=== PATIENT | female | born 1945 | race Caucasian/White ===

== ENCOUNTER 2017-03-03 14:01 | Observation (INO) | payer OTHER ==
[~2017-03-03] VITALS: Ht 157.5 cm; Wt 84.7 kg
--- NOTE | 2017-03-03 15:08 | DIAGNOSTIC IMAGING REPORT ---
PROCEDURE: XR CHEST 1 VIEW INDICATION: CHEST PAIN TECHNIQUE: Portable AP view 02:49 p.m. COMPARISON: Chest x-ray 11/05/2010 FINDINGS: Lungs are clear. Heart and mediastinum are normal. Thorax is normal. IMPRESSION: 1. Negative chest.
--- NOTE | 2017-03-03 18:09 | ED CLINICAL REPORT ---
Clinical Report - Physicians/Mid Levels [facility] [address] [place] [address] 03/03/2017 14:03 Patient: CLAUDIA KING Time Seen: 14:09. Arrived- By private vehicle. Historian- patient. HISTORY OF PRESENT ILLNESS Chief Complaint: CHEST PAIN. It is described as sharp and it is described as located in the left chest area and radiating (L arm pit). At its maximum, severity described as 10 / 10. When seen in the E.D., severity described as 1 / 10. Not worsened by movement or deep breaths or relieved by rest. This started yesterday at about 9 PM; Six or seven episodes last about 15 minutes each. Steady pain with jabs in addition. No reflux. and is still present (almost gone). It was abrupt in onset. Onset during rest. The patient has had difficulty breathing and nausea and has experienced diaphoresis. No vomiting. (Took own ASA last night). Similar symptoms previously: None. REVIEW OF SYSTEMS No fever, chills, cough, pedal edema or calf pain. No headache, sore throat, blurred vision, abdominal pain or black stools. No difficulty with urination, skin rash, enlarged lymph nodes, joint pain or bloody stools. No reflux. PAST HISTORY PCP: Dr Chelsea Mauricio [facility] SURGERY HX: Had hysterectomy. ( Left rotator cuff. left knee, Lower back L4, L5). Hosp: Tachycardia and hypertension Illness: HBP, Hypothyroid. Neuropathy. SOCIAL HISTORY Former smoker. ADDITIONAL NOTES The nursing notes have been reviewed. PHYSICAL EXAM Vital Signs: 03/03/2017 18:32 BP: 128/75. HR: 63. RR: 16. O2 saturation: 100%. Temp: 98 F. 03/03/2017 16:50 BP: 122/96. HR: 66. RR: 18. O2 saturation: 97%. 03/03/2017 14:14 BP: 177/75. HR: 61. RR: 18. O2 saturation: 100%. Temp: 98 F. Pain level now: 10/17. Appearance: Alert. No acute distress. Eyes: Pupils equal, round and reactive to light. Eyes normal inspection. ENT: Pharynx normal. Neck: Neck not supple. Normal inspection. CVS: Normal heart rate and rhythm. Heart sounds normal. Respiratory: No respiratory distress. Breath sounds normal. Chest nontender. Abdomen: Soft and nontender. Bowel sounds normal. Back: Normal external inspection. Skin: Skin warm. Normal skin color. Extremities: Extremities exhibit normal ROM. No lower extremity edema. Neuro: No alteration in mental status. No motor deficit. LABS, X-RAYS, AND EKG EKG: No acute process. No acute ischemia. Rate: 61. Normal P waves. Normal CELSO. Normal QRS complex. Normal axis. Normal ST and T waves. EKG #2: Normal. Chest X-ray: (PROCEDURE: XR CHEST 1 VIEW INDICATION: CHEST PAIN TECHNIQUE: Portable AP view 02:49 p.m. COMPARISON: Chest x-ray 11/05/2010 FINDINGS: Lungs are clear. Heart and mediastinum are normal. Thorax is normal. IMPRESSION: 1. Negative chest. Electronically Final signed by:Jony Garcia MD 03/03/2017 3:07:50 PM). Laboratory Tests: CBC w Diff: (IRMA: 03/03/2017 14:40) ( MsgRcvd 03/03/2017 14:55) Final results Test Result Flag Units (Reference) WHITE BLOOD COUNT 6.6 K/uL (4.5-11.5) RED BLOOD COUNT 4.48 M/uL (4.00-5.20) HEMOGLOBIN 12.4 gm/dL (12.0-16.0) HEMATOCRIT 37.5 % (36.0-46.0) MEAN CELL VOLUME 84 fL (80-100) MEAN CORPUSCULAR HGB 28 pg (26-34) MEAN CORPUSCULAR HGB CONC 33 g/dL (31-37) RED CELL DISTRIBUTION WIDTH 14.6 % (11.6-14.8) PLATELET COUNT 207 K/uL (150-400) NEUTROPHIL % 69.3 % (50-75) LYMPH % 22.9 L % (25-40) MONO % 7.7 % (3-14) EOSINOPHIL % 0 % (0-4) BASOPHIL % 0.1 % (0-2) [id number]: (IRMA: 03/03/2017 14:40) ( [facility] 03/03/2017 15:06) Final results Test Result Flag Units (Reference) D-DIMER QUANTITATIVE < 0.27 L ug/mLFEU (0.27-0.52) The primary value of this quantitative assay relates toits negative predictive value (i.e. exclusion) of pulmonaryembolism/deep vein thrombosis/DIC.Elevated levels of d-dimer may also occur with:, age, cancer, inflammation, liver disease,post-op, infection, hematoma, coronary disease, peripheralarteriopathy, bleeding disorders and thrombolytic treatment.Results should be correlated with other clinical andradiological data.Testing Methodology: Latex Immunoassay BNP: (IRMA: 03/03/2017 14:40) ( [facility] 03/03/2017 15:07) Final results Test Result Flag Units (Reference) B-TYPE NATRIURETIC PEPTIDE 27.7 pg/ml (5-100) CHEM 13 PANEL: (IRMA: 03/03/2017 14:40) ( [facility] 03/03/2017 15:13) Final results Test Result Flag Units (Reference) GLUCOSE 81 mg/dL (70-110) BUN 13 mg/dL (7-18) CREATININE 0.7 mg/dL (0.6-1.3) Estimated GFR >60 mL/min Estimated GFR- >60 mL/min Note: Persistent reduction over 3 months in eGFR<60 mL/min/1.73 m2 defines CKD. Patients with eGFR values>=60 mL/min/1.73 m2 may also have CKD if evidence ofpersistent proteinuria. Additional information may be foundat www.kidney.org. SODIUM 140 mmol/L (136-145) POTASSIUM 3.8 mmol/L (3.5-5.1) CHLORIDE 104 mmol/L (98-107) CARBON DIOXIDE 23 mmol/L (21-32) CALCIUM 9.1 mg/dL (8.5-10.1) TOTAL PROTEIN 7.1 g/dL (6.4-8.2) ALBUMIN 3.6 g/dL (3.3-5.0) BILIRUBIN, TOTAL 0.5 mg/dL (0.0-1.0) ALKALINE PHOSPHATASE 70 U/L (46-116) AST (SGOT) 15 U/L (15-37) ALT (SGPT) 20 U/L (12-78) MAGNESIUM 2.0 mg/dL (1.8-2.4) CPK 41 U/L (24-260) TROPONIN I <0.05 ng/mL (0.00-1.5) TROPONIN REFERENCE RANGE:<0.1 NEGATIVE0.1-1.5 INDETERMINANT>1.5 POSITIVE . PROGRESS AND PROCEDURES Course of Care: 15:09 03/03/17. re exam Labs are negative 16:22 03/03/17. Second EKG neg. Labs and CXR are negative. Page to Dr Malin. Dr Pierce agrees to admit the patient for serial enzymes and to arrange stress testing either this admit or soon after discharge. Disposition orders written. Disposition: Admitted. CLINICAL IMPRESSION Clinical picture does not suggest chest wall pain, pulmonary edema or embolism, aortic dissection or pleurisy. Clinical picture does not suggest pneumothorax. CHEST PAIN, RO ACS. (Electronically signed by Fernandez Beebe MD 03/04/2017 0:21)
--- NOTE | 2017-03-03 18:09 | ED NURSING NOTES ---
Clinical Report - Nurses [facility] [address] [place] [address] 03/03/2017 14:03 Patient: CLAUDIA KING TRIAGE Triage time 14:15. Chief Complaint: CHEST PAIN. --14:27 Sheriff Szymanski R.N. 14:14 03/03/17. BP: 177/75. HR: 61. RR: 18. O2 saturation: 100%. Temp: 98 F. Pain level now: 10/17. --14:27 Sheriff Szymanski R.N. Weight: 86.1 kg stated. Height/Length: 62 inches Per Patient. BMI: 34.8. --14:26 Sheriff Szymanski R.N. Medications Venlafaxine HCl ER Oral (Tablet Extended Release 24 Hour 37.5 mg) 1 tablet. --14:18 Sheriff Szymanski R.N. Thyroid Oral. --14:19 Sheriff Szymanski R.N. Metoprolol Tartrate Oral (Tablet 25 mg) 1 tablet. --14:20 Sheriff Szymanski R.N. Gabapentin Oral 100 mg, 3x a day. --14:20 Sheriff Szymanski R.N. Propranolol HCl Oral 120 mg, daily. --14:21 Sheriff Szymanski R.N. Allergies PCN. Phenergan. --14:21 Sheriff Szymanski R.N. History Arrived by private vehicle. Historian: patient. This started yesterday. Onset. (around 1999.). ( Chest pressure and pain started last night. On and off since then, pain level 10/17.). She has had difficulty breathing, nausea and vomiting. PAST MEDICAL HX: Immunizations: status is unknown. SURGERY HX: Had hysterectomy. ( Left rotator cuff. left knee, Lower back L4, L5). SOCIAL HX: Smoker- current status unknown. No alcohol use or drug use. NUTRITIONAL RISK ASSESSMENT: The nutritional risk assessment revealed no deficiencies. FUNCTIONAL ASSESSMENT: Functional assessment: no impairments noted. LEARNING NEEDS ASSESSMENT: The learning needs assessment revealed no barriers. SKIN INTEGRITY ASSESSMENT: Skin integrity risk assessment completed. No skin integrity risk identified. --14:27 Sheriff Szymanski R.N. PROBLEMS: Restless Legs Syndrome. Hypothyroidism. Peripheral Neuropathy. Hypertension. --14:24 Sheriff Szymanski R.N. PHYSICAL ASSESSMENT Ambulatory to room. Patient gowned. GENERAL / NEURO / PSYCH: Alert. Oriented X 4. Appears in no acute distress. HEENT: Mucous membranes are pink. RESPIRATORY: Respirations not labored. CVS: Pulses within normal limits. Capillary refill less than 2 seconds. GI / : Abdomen soft. SKIN: Skin is warm and dry. Normal skin turgor. --14:27 Sheriff Szymanski R.N. NURSING PROGRESS NOTES EKG time: (1413). EKG was performed by a tech and shown to the ED physician. ( (Per protocol)). --14:12 Chandler Whittaker, ER Tech1 Two patient identifiers checked. Call light placed in reach. Side rails up x 2. Bed placed in lowest position. Brakes of bed on. --14:28 Sheriff Szymanski R.N. 14:30 03/03/2017 Site #1 started via IV in the left forearm with an 20g angiocath, with aseptic technique; one attempt. Saline lock flushed with 10 mL saline. --14:45 Sheriff Szymanski R.N. 14:54 03/03/2017 Aspirin PO 325 mg given. Allergies verified and confirmed 5 rights. --14:54 Sheriff Szymanski R.N. 14:54 03/03/2017 NITROGLYCERIN PASTE Topical 1 inch. Applied to the right chest. Allergies verified and confirmed 5 rights. --14:54 Sheriff Szymanski R.N. 16:50 03/03/17. BP: 122/96. HR: 66. RR: 18. O2 saturation: 97%. --16:51 Ian Murry, ER Tech1 18:32 03/03/17. BP: 128/75. HR: 63. RR: 16. O2 saturation: 100%. Temp: 98 F. --18:34 Kb Hidalgo. Locked/Released at 03/06/2017 13:01 by Roxy Jeong R.N.
--- NOTE | 2017-03-03 18:09 | ED CLINICAL REPORT ---
Clinical Report - Physicians/Mid Levels [facility] [address] [place] [address] 03/03/2017 14:03 Patient: CLAUDIA KING Time Seen: 14:09. Arrived- By private vehicle. Historian- patient. HISTORY OF PRESENT ILLNESS Chief Complaint: CHEST PAIN. It is described as sharp and it is described as located in the left chest area and radiating (L arm pit). At its maximum, severity described as 10 / 10. When seen in the E.D., severity described as 1 / 10. Not worsened by movement or deep breaths or relieved by rest. This started yesterday at about 9 PM; Six or seven episodes last about 15 minutes each. Steady pain with jabs in addition. No reflux. and is still present (almost gone). It was abrupt in onset. Onset during rest. The patient has had difficulty breathing and nausea and has experienced diaphoresis. No vomiting. (Took own ASA last night). Similar symptoms previously: None. REVIEW OF SYSTEMS No fever, chills, cough, pedal edema or calf pain. No headache, sore throat, blurred vision, abdominal pain or black stools. No difficulty with urination, skin rash, enlarged lymph nodes, joint pain or bloody stools. No reflux. PAST HISTORY PCP: Dr Chelsea Mauricio [facility] SURGERY HX: Had hysterectomy. ( Left rotator cuff. left knee, Lower back L4, L5). Hosp: Tachycardia and hypertension Illness: HBP, Hypothyroid. Neuropathy. SOCIAL HISTORY Former smoker. ADDITIONAL NOTES The nursing notes have been reviewed. PHYSICAL EXAM Vital Signs: 03/03/2017 18:32 BP: 128/75. HR: 63. RR: 16. O2 saturation: 100%. Temp: 98 F. 03/03/2017 16:50 BP: 122/96. HR: 66. RR: 18. O2 saturation: 97%. 03/03/2017 14:14 BP: 177/75. HR: 61. RR: 18. O2 saturation: 100%. Temp: 98 F. Pain level now: 10/17. Appearance: Alert. No acute distress. Eyes: Pupils equal, round and reactive to light. Eyes normal inspection. ENT: Pharynx normal. Neck: Neck not supple. Normal inspection. CVS: Normal heart rate and rhythm. Heart sounds normal. Respiratory: No respiratory distress. Breath sounds normal. Chest nontender. Abdomen: Soft and nontender. Bowel sounds normal. Back: Normal external inspection. Skin: Skin warm. Normal skin color. Extremities: Extremities exhibit normal ROM. No lower extremity edema. Neuro: No alteration in mental status. No motor deficit. LABS, X-RAYS, AND EKG EKG: No acute process. No acute ischemia. Rate: 61. Normal P waves. Normal CELSO. Normal QRS complex. Normal axis. Normal ST and T waves. EKG #2: Normal. Chest X-ray: (PROCEDURE: XR CHEST 1 VIEW INDICATION: CHEST PAIN TECHNIQUE: Portable AP view 02:49 p.m. COMPARISON: Chest x-ray 11/05/2010 FINDINGS: Lungs are clear. Heart and mediastinum are normal. Thorax is normal. IMPRESSION: 1. Negative chest. Electronically Final signed by:Jony Garcia MD 03/03/2017 3:07:50 PM). Laboratory Tests: CBC w Diff: (IRMA: 03/03/2017 14:40) ( MsgRcvd 03/03/2017 14:55) Final results Test Result Flag Units (Reference) WHITE BLOOD COUNT 6.6 K/uL (4.5-11.5) RED BLOOD COUNT 4.48 M/uL (4.00-5.20) HEMOGLOBIN 12.4 gm/dL (12.0-16.0) HEMATOCRIT 37.5 % (36.0-46.0) MEAN CELL VOLUME 84 fL (80-100) MEAN CORPUSCULAR HGB 28 pg (26-34) MEAN CORPUSCULAR HGB CONC 33 g/dL (31-37) RED CELL DISTRIBUTION WIDTH 14.6 % (11.6-14.8) PLATELET COUNT 207 K/uL (150-400) NEUTROPHIL % 69.3 % (50-75) LYMPH % 22.9 L % (25-40) MONO % 7.7 % (3-14) EOSINOPHIL % 0 % (0-4) BASOPHIL % 0.1 % (0-2) [id number]: (IRMA: 03/03/2017 14:40) ( [facility] 03/03/2017 15:06) Final results Test Result Flag Units (Reference) D-DIMER QUANTITATIVE < 0.27 L ug/mLFEU (0.27-0.52) The primary value of this quantitative assay relates toits negative predictive value (i.e. exclusion) of pulmonaryembolism/deep vein thrombosis/DIC.Elevated levels of d-dimer may also occur with:, age, cancer, inflammation, liver disease,post-op, infection, hematoma, coronary disease, peripheralarteriopathy, bleeding disorders and thrombolytic treatment.Results should be correlated with other clinical andradiological data.Testing Methodology: Latex Immunoassay BNP: (IRMA: 03/03/2017 14:40) ( [facility] 03/03/2017 15:07) Final results Test Result Flag Units (Reference) B-TYPE NATRIURETIC PEPTIDE 27.7 pg/ml (5-100) CHEM 13 PANEL: (IRMA: 03/03/2017 14:40) ( [facility] 03/03/2017 15:13) Final results Test Result Flag Units (Reference) GLUCOSE 81 mg/dL (70-110) BUN 13 mg/dL (7-18) CREATININE 0.7 mg/dL (0.6-1.3) Estimated GFR >60 mL/min Estimated GFR- >60 mL/min Note: Persistent reduction over 3 months in eGFR<60 mL/min/1.73 m2 defines CKD. Patients with eGFR values>=60 mL/min/1.73 m2 may also have CKD if evidence ofpersistent proteinuria. Additional information may be foundat www.kidney.org. SODIUM 140 mmol/L (136-145) POTASSIUM 3.8 mmol/L (3.5-5.1) CHLORIDE 104 mmol/L (98-107) CARBON DIOXIDE 23 mmol/L (21-32) CALCIUM 9.1 mg/dL (8.5-10.1) TOTAL PROTEIN 7.1 g/dL (6.4-8.2) ALBUMIN 3.6 g/dL (3.3-5.0) BILIRUBIN, TOTAL 0.5 mg/dL (0.0-1.0) ALKALINE PHOSPHATASE 70 U/L (46-116) AST (SGOT) 15 U/L (15-37) ALT (SGPT) 20 U/L (12-78) MAGNESIUM 2.0 mg/dL (1.8-2.4) CPK 41 U/L (24-260) TROPONIN I <0.05 ng/mL (0.00-1.5) TROPONIN REFERENCE RANGE:<0.1 NEGATIVE0.1-1.5 INDETERMINANT>1.5 POSITIVE . PROGRESS AND PROCEDURES Course of Care: 15:09 03/03/17. re exam Labs are negative 16:22 03/03/17. Second EKG neg. Labs and CXR are negative. Page to Dr Malin. Dr Pierce agrees to admit the patient for serial enzymes and to arrange stress testing either this admit or soon after discharge. Disposition orders written. Disposition: Admitted. CLINICAL IMPRESSION Clinical picture does not suggest chest wall pain, pulmonary edema or embolism, aortic dissection or pleurisy. Clinical picture does not suggest pneumothorax. CHEST PAIN, RO ACS. (Electronically signed by Fernandez Beebe MD 03/04/2017 0:21)
--- NOTE | 2017-03-03 18:09 | ED ORDER SUMMARY ---
..... Patient: CLAUDIA KING OrderSheet [facility] VisitID: [id number] [address] [place] [address] 72y, F Registration Date/Time: 03/03/2017 ORDER SHEET Weight: 86.1 kg (stated) Allergies: PCN, Phenergan GENERAL ORDERS: Chest 1V Urgent (14:16 03/03/2017 Miguel GOLDEN) (Ack 14:23 RUPERTurca ER Tech1) (16:43 Andrew) Gas Desulfurizer (Continuous) (14:16 03/03/2017 Miguel GOLDEN) (Ack 14:23 RUPERTurca ER Tech1) (14:23 RUPERTurca ER Tech1) Cardiac Panel Stat (14:17 03/03/2017 Miguel GOLDEN) (Ack 14:23 Brayana ER Tech1) (17:02 ALawrence ER Tech1) BNP Urgent (14:17 03/03/2017 Miguel GOLDEN) (Ack 14:23 RUPERTurca ER Tech1) (17:02 ALawrence ER Tech1) D-Dimer Urgent (14:17 03/03/2017 Miguel GOLDEN) (Ack 14:23 RUPERTurca ER Tech1) (17:02 ALawrence ER Tech1) Oxygen (2 L/min) (NC) (14:17 03/03/2017 Miguel GOLDEN) (Ack 14:23 RUPERTurca ER Tech1) (14:23 IJurca ER Tech1) Pulse oximeter (14:17 03/03/2017 Miguel GOLDEN) (Ack 14:23 RUPERTurca ER Tech1) (14:23 IJurca ER Tech1) EKG - ER Stat (14:17 03/03/2017 Miguel GOLDEN) (Ack 14:23 Brayana ER Tech1) (14:23 RUPERTurca ER Tech1) EKG - ER Repeat Stat (16:06 03/03/2017 Miguel GOLDEN) (Ack 16:11 RUPERTurca ER Tech1) (16:12 Nikos) - (NEEDS RAY FORM.) (16:31 03/03/2017 Miguel GOLDEN) (16:38 IJurca ER Tech1) MEDICATION ORDERS: Aspirin PO 325 mg (NOW) (14:16 03/03/2017 Miguel GOLDEN) (14:54 Esthermbgrzegorz R.N.) NitroGLYCERIN Paste Topical 1 in. (NOW) (14:16 03/03/2017 Miguel GOLDEN) (14:54 Esthermbgrzegorz R.N.) IV FLUIDS: IV Saline Lock (14:17 03/03/2017 Miguel GOLDEN) (14:45 Ten R.N.) ORDER SHEET NOTES: [Electronically signed by Fernandez Beebe MD (00:21 03/04/2017)] [Electronically signed by Roxy Jeong R.N. (13:01 03/06/2017)] [Electronically locked/signed by Roxy Jeong R.N. (13:03/06/2017)]
--- NOTE | 2017-03-03 18:09 | ED NURSING NOTES ---
Clinical Report - Nurses Merged With [facility] [address] [place] [address] 03/03/2017 14:03 Patient: CLAUDIA KING TRIAGE Triage time 14:15. Chief Complaint: CHEST PAIN. --14:27 Sheriff Szymanski R.N. 14:14 03/03/17. BP: 177/75. HR: 61. RR: 18. O2 saturation: 100%. Temp: 98 F. Pain level now: 10/17. --14:27 Sheriff Szymanski R.N. Weight: 86.1 kg stated. Height/Length: 62 inches Per Patient. BMI: 34.8. --14:26 Sheriff Szymanski R.N. Medications Venlafaxine HCl ER Oral (Tablet Extended Release 24 Hour 37.5 mg) 1 tablet. --14:18 Sheriff Szymanski R.N. Thyroid Oral. --14:19 Sheriff Szymanski R.N. Metoprolol Tartrate Oral (Tablet 25 mg) 1 tablet. --14:20 Sheriff Szymanski R.N. Gabapentin Oral 100 mg, 3x a day. --14:20 Sheriff Szymanski R.N. Propranolol HCl Oral 120 mg, daily. --14:21 Sheriff Szymanski R.N. Allergies PCN. Phenergan. --14:21 Sheriff Szymanski R.N. History Arrived by private vehicle. Historian: patient. This started yesterday. Onset. (around 1999.). ( Chest pressure and pain started last night. On and off since then, pain level 10/17.). She has had difficulty breathing, nausea and vomiting. PAST MEDICAL HX: Immunizations: status is unknown. SURGERY HX: Had hysterectomy. ( Left rotator cuff. left knee, Lower back L4, L5). SOCIAL HX: Smoker- current status unknown. No alcohol use or drug use. NUTRITIONAL RISK ASSESSMENT: The nutritional risk assessment revealed no deficiencies. FUNCTIONAL ASSESSMENT: Functional assessment: no impairments noted. LEARNING NEEDS ASSESSMENT: The learning needs assessment revealed no barriers. SKIN INTEGRITY ASSESSMENT: Skin integrity risk assessment completed. No skin integrity risk identified. --14:27 Sheriff Szymanski R.N. PROBLEMS: Restless Legs Syndrome. Hypothyroidism. Peripheral Neuropathy. Hypertension. --14:24 Sheriff Szymanski R.N. PHYSICAL ASSESSMENT Ambulatory to room. Patient gowned. GENERAL / NEURO / PSYCH: Alert. Oriented X 4. Appears in no acute distress. HEENT: Mucous membranes are pink. RESPIRATORY: Respirations not labored. CVS: Pulses within normal limits. Capillary refill less than 2 seconds. GI / : Abdomen soft. SKIN: Skin is warm and dry. Normal skin turgor. --14:27 Sheriff Szymanski R.N. NURSING PROGRESS NOTES EKG time: (1413). EKG was performed by a tech and shown to the ED physician. ( (Per protocol)). --14:12 Chandler Whittaker, ER Tech1 Two patient identifiers checked. Call light placed in reach. Side rails up x 2. Bed placed in lowest position. Brakes of bed on. --14:28 Sheriff Szymanski R.N. 14:30 03/03/2017 Site #1 started via IV in the left forearm with an 20g angiocath, with aseptic technique; one attempt. Saline lock flushed with 10 mL saline. --14:45 Sheriff Szymanski R.N. 14:54 03/03/2017 Aspirin PO 325 mg given. Allergies verified and confirmed 5 rights. --14:54 Sheriff Szymanski R.N. 14:54 03/03/2017 NITROGLYCERIN PASTE Topical 1 inch. Applied to the right chest. Allergies verified and confirmed 5 rights. --14:54 Sheriff Szymanski R.N. 16:50 03/03/17. BP: 122/96. HR: 66. RR: 18. O2 saturation: 97%. --16:51 Ian Murry, ER Tech1 18:32 03/03/17. BP: 128/75. HR: 63. RR: 16. O2 saturation: 100%. Temp: 98 F. --18:34 Kb Hidalgo. Locked/Released at 03/06/2017 13:01 by Roxy Jeong R.N.
--- NOTE | 2017-03-03 18:09 | ED ORDER SUMMARY ---
..... Patient: CLAUDIA KING OrderSheet [facility] VisitID: [id number] [address] [place] [address] 72y, F Registration Date/Time: 03/03/2017 ORDER SHEET Weight: 86.1 kg (stated) Allergies: PCN, Phenergan GENERAL ORDERS: Chest 1V Urgent (14:16 03/03/2017 Miguel GOLDEN) (Ack 14:23 RUPERTurca ER Tech1) (16:43 Andrew) Mitochondrial Disorders Counselor (Continuous) (14:16 03/03/2017 Miguel GOLDEN) (Ack 14:23 RUPERTurca ER Tech1) (14:23 RUPERTurca ER Tech1) Cardiac Panel Stat (14:17 03/03/2017 Miguel GOLDEN) (Ack 14:23 Brayana ER Tech1) (17:02 ALawrence ER Tech1) BNP Urgent (14:17 03/03/2017 Miguel GOLDEN) (Ack 14:23 RUPERTurca ER Tech1) (17:02 ALawrence ER Tech1) D-Dimer Urgent (14:17 03/03/2017 Miguel GOLDEN) (Ack 14:23 RUPERTurca ER Tech1) (17:02 ALawrence ER Tech1) Oxygen (2 L/min) (NC) (14:17 03/03/2017 Miguel GOLDEN) (Ack 14:23 RUPERTurca ER Tech1) (14:23 IJurca ER Tech1) Pulse oximeter (14:17 03/03/2017 Miguel GOLDEN) (Ack 14:23 RUPERTurca ER Tech1) (14:23 IJurca ER Tech1) EKG - ER Stat (14:17 03/03/2017 Miguel GOLDEN) (Ack 14:23 Brayana ER Tech1) (14:23 RUPERTurca ER Tech1) EKG - ER Repeat Stat (16:06 03/03/2017 Miguel GOLDEN) (Ack 16:11 RUPERTurca ER Tech1) (16:12 iNkos) - (NEEDS RAY FORM.) (16:31 03/03/2017 Miguel GOLDEN) (16:38 IJurca ER Tech1) MEDICATION ORDERS: Aspirin PO 325 mg (NOW) (14:16 03/03/2017 Miguel GOLDEN) (14:54 Esthermbgrzegorz R.N.) NitroGLYCERIN Paste Topical 1 in. (NOW) (14:16 03/03/2017 Miguel GOLDEN) (14:54 Esthermbgrzegorz R.N.) IV FLUIDS: IV Saline Lock (14:17 03/03/2017 Miguel GOLDEN) (14:45 Ten R.N.) ORDER SHEET NOTES: [Electronically signed by Fernandez Beebe MD (00:21 03/04/2017)] [Electronically signed by Roxy Jeong R.N. (13:01 03/06/2017)] [Electronically locked/signed by Roxy Jeong R.N. (13:03/06/2017)]
--- NOTE | 2017-03-03 19:36 | Progress Note ---
Subjective General Admission History and Physical Examination Observation acute care Patient Name: Nguyen Arnold Admission Date: 03/03/2017 Primary Care Provider: Gaurav Guzman Attending Physician: Rafiq Malin M.D. Admitting Physician: Miky Pierce MD] Code Status: Full code; limitations; Room: SUBJECTIVE Historian: Patient her self Reliability: good Chief Complaint: Recurrent Chest pain Associated nausea, vomiting Shortness of breath History of Present Illness: The patient is a 72-year-old white female who's had a previous history of PE, hypothyroid, hyperlipidemia, hypertension, GERD, restless leg syndrome and neuropathic pain syndrome, prior history of pancreatitis, resected large bowel,, obstructive sleep apnea , presented to the emergency department at [facility] this evening with recurrent chest pain. She reports of an episode that occurred yesterday evening after she finished her dinner. Patient reported of a heavy lancing chest pain with radiation to the left arm. This was quickly followed by breathlessness, diophoresis and an episode of nausea, vomiting. Patient states that she had one episode of vomiting; without relief from her symptoms. Patient was not taken to the emergency department at that time. She elected to rest and gradually the pain went away after 30-60 minutes. Patient has a strong history of severe obstructive sleep apnea. Patient however had a recurrence of the chest pain, today [facility] [facility] to the [facility] ED. Patient states that she did not have the same intensity of pain, but was reported to be breathless. This pain also resolved after now. Patient entered the [facility] ED without chest pain. Patient reports of multiple recurrences of the chest over the past month. Patient reported this to her primary care provider; who at that time had planned on further workup. Patient has not been seen by cardiology and she does not report of a formal work up.. Patient has not had a previous cardiac history. Patient does have a history of neuropathic pain and restless leg syndrome. Patient does report of obstructive sleep apnea for which she is on a CPAP. At the [facility] Emergency department, She was evaluated and it was determined that she needed a formal cardiac workup and ACS rule out.. Initial enzymes have been negative. Her EKGs also been without acute concern. PAST MEDICAL HISTORY Illnesses: 1. Obstructive sleep apnea 2. Neuropathic pain syndrome 3. Restless leg syndrome 4. History of pancreatitis 5. Bowel resection 6. Hyperlipidemia. Currently untreated 7. Hypothyroid. Currently untreated 8. Gastroesophageal reflux disease 9. Remote history of pulmonary embolus and recurrent angina Allergies: 1. Penicillin 2. Phenergan Medications: 1. Ropinirole by mouth 2 mg at bedtime 2. Gabapentin 100 mg 3 times a day 3. Surgery: 1. Previous bowel resection or diverticulosis 2. Left knee surgery, arthroplasty, left knee 3. Back surgery for spinal stenosis. 4. Hysterectomy 5. Right rotator cuff repair 6. Cardiac catheterization in 2003; no blockages of vessels Experiencing Injuries: 1. No known Hospitalizations: 1. Previous hospitalizations [facility], knee replacement FAMILY HISTORY Parents: 1. Father, at the age of 89; history of heart disease and complications related to malignant melanoma 2. Mother, history of breast cancer. in her 40s. Children: 1. 3 boys Other significant family history: Pancreatitis, liver cancer, pancreatic cancer SOCIAL HISTORY 1. Marital Status: , lives on property of her son 2. Mosque: Unknown 3. Education: Not known 4. Employment History: Retired 5. Occupational health exposures: Unknown HABITS 1. Tobacco: Remote smoking history, stopped in the . 2. Drugs: No known 3. Alcohol: None HEALTH SUPERVISION Item/Test Records are not available ADVANCED DIRECTIVES: 1. Living well: In discussion and drying up a living will 2. POLST: No 3. Code Status: Full code with limitations; does not want prolonged life- sustaining measures Patient wants all her 3 sons to be available. 4. Durable Power Cyber Security Administrator Health care: None at this time 5. Donor card: unknown REVIEW OF SYSTEMS Remarkable for those things stated in the history of present illness and past medical history. Review of system completed with the following notable findings : ROS Constitutional Sweats. Eyes Denies: Vision Change, Conjunctival Inflammation. ENT Denies: Nasal Discharge, Throat Swelling. Respiratory SOB w/exertion. Denies: Wheezing. Cardiovascular Denies: Palpitations, PND, Edema. Gastrointestinal Denies: Abdominal Pain. Musculoskeletal Denies: Back Pain. Skin Denies: Jaundice. Physical Exam Vital Signs / I&Os BP: 177/75. HR: 61. RR: 18. O2 saturation: 100%. Temp: 98 F. General Appearance Oriented X3, Cooperative, No acute distress HEENT Normal exam, Atraumatic, EOMI Lungs Clear to auscultation, Normal air movement Neck Supple, No JVD Cardiovascular Regular rate and rhythm, Normal S1 and S2 Abdomen Soft, No tenderness, No guarding Pelvic No tenderness Extremities No cyanosis, No clubbing, No edema Skin No Breakdown Neurological Normal speech, Normal tone, Cranial nerves intact Psych/Mental Status Mood normal LAB Results Laboratory Tests 03/03 03/03 1440 1440 Chemistry Plasma Sodium (136 - 145 mmol/L) 140 Plasma Potassium (3.5 - 5.1 mmol/L) 3.8 Plasma Chloride (98 - 107 mmol/L) 104 CO2 (Enzymatic) (21 - 32 mmol/L) 23 BUN (7 - 18 mg/dL) 13 Creatinine (0.6 - 1.3 mg/dL) 0.7 Est GFR ( Amer) (mL/min) >60 Est GFR (Non-Af Amer) (mL/min) >60 Glucose (70 - 110 mg/dL) 81 Plasma Calcium (8.5 - 10.1 mg/dL) 9.1 Plasma Magnesium (1.8 - 2.4 mg/dL) 2.0 Total Bilirubin (0.0 - 1.0 mg/dL) 0.5 AST (15 - 37 U/L) 15 ALT (12 - 78 U/L) 20 Alkaline Phosphatase (46 - 116 U/L) 70 Creatine Kinase (24 - 260 U/L) 41 Troponin (0.00 - 1.5 ng/mL) <0.05 B-Natriuretic Peptide (5 - 100 pg/ml) 27.7 Total Protein (6.4 - 8.2 g/dL) 7.1 Albumin (3.3 - 5.0 g/dL) 3.6 Coagulation D-Dimer, Quantitative (0.27 - 0.52 ug/mLFEU) < 0.27 Hematology WBC (4.5 - 11.5 K/uL) 6.6 RBC (4.00 - 5.20 M/uL) 4.48 Hgb (12.0 - 16.0 gm/dL) 12.4 Hct (36.0 - 46.0 %) 37.5 MCV (80 - 100 fL) 84 MCH (26 - 34 pg) 28 RDW (11.6 - 14.8 %) 14.6 Neut % (Auto) (50 - 75 %) 69.3 Lymph % (Auto) (25 - 40 %) 22.9 [place] % (Auto) (3 - 14 %) 7.7 Eos % (Auto) (0 - 4 %) 0 Baso % (Auto) (0 - 2 %) 0.1 Plt Count, EDTA (150 - 400 K/uL) 207 PUBS MCHC (31 - 37 g/dL) 33 Imaging Chest x-ray on 03/03/2017. This showed a normal chest Assessment and Plan Problem List 1. Chest pain, rule out acute myocardial infarction Plan Recurrent episodes of chest pain and most recent with radiation to left arm. He had associated nausea, vomiting and diaphoresis. Patient had recurrent even this morning of the chest pain. Familial history of heart disease. Patient's had formal workup in the past. Previous catheterization in 2003 without blockages of vessels. Patient was treated previously for hyperlipidemia, hypothyroid and hypertension. Patient is a longer being treated for these conditions. Lab orders will include lipid profile and thyroid panel. Patient will be admitted to observation telemetry. Monitor the cardiac enzymes overnight. Patient will start on aspirin and nitroglycerin. Plan to give patient a single dose of Lovenox tonight. Patient will also have CESAR hose available. If cardiac enzymes are negative, then we'll discontinue the Lovenox. Continue the CESAR hose. If patient rules out for cardiac event, then we'll plan to schedule patient for a treadmill stress test. 2. Chest pain Plan Acute chest pain, most necessarily needs a ACS workup and rule out. Cardiac enzymes tonight, this will be followed by EKG in the morning. Single dose of Lovenox will be given to discontinuing if rules out. If patient does not rule in and then will schedule for a Treadmill test 3. Angina at rest Plan Issue with angina and at rest. The frequency recurrence of the chest pain is concerning for coronary artery disease. Plan to follow the cardiac profile overnight She rules out, then we'll plan stress test. Patient is followed by scheduled [facility] clinics. Transition to formal cardiac workup. Upon discharge from this hospital. E&M Codes Admission: Obsv-Comp/High/[id number]
[2017-03-03 20:04] VITALS: BP 125/60
[2017-03-03 22:24] VITALS: BP 127/69
[2017-03-03] MEDS ORDERED: SYNTHROID112 MCG PO (22:44)
[2017-03-03] MEDS ORDERED: METOPROLOL SUCC25 MG PO (22:44)
[2017-03-03] MEDS ORDERED: EFFEXOR XR37.5 MG PO (22:44)
[2017-03-03] MEDS ORDERED: ROPINIROLE HC0.25 MG PO (22:46)
[2017-03-03] MEDS ORDERED: GABAPENTIN100 MG PO (22:46)
[2017-03-03] MEDS ORDERED: ASPIRIN ADULT L81 MG PO (22:46)
[2017-03-04 02:49] VITALS: BP 154/79
--- NOTE | 2017-03-04 03:42 | Progress Note ---
Subjective General ADVANCED CARE PLAN History of Present Illness 72-year-old white female who's had a previous history of PE, hypothyroid, hyperlipidemia, hypertension, GERD, restless leg syndrome and neuropathic pain syndrome, prior history of pancreatitis, resected large bowel,, obstructive sleep apnea , presented to the emergency department at [facility] this evening with recurrent chest pain. A discussion was undertaken with the patient regarding previous advance care arrangements/decisions. The following advanced directives were noted by the patient and discussed with me at the time of admission. ADVANCED DIRECTIVES: 1. Living well: In discussion and drying up a living will 2. POLST: No 3. Code Status: Full code with limitations; does not want prolonged life- sustaining measures Patient wants all her 3 sons to be available. 4. Durable Power Security Administrator Health care: None at this time 5. Donor card: unknown The patient has expressed interest in not pursuing any form of resuscitation at this time. She has opted not to pursue intubation/mechanical ventilation, CPR, electrical cardioversion, or life-sustaining efforts involving drugs at the time of cardiopulmonary arrest. The patient's wishes were documented in the chart and orders regarding the patient's wishes entered into the [employer] system. The "Advance Care Plan Document" was not distributed to patient to discuss with her family. Less than 30 minutes was spent in performing the above tasks and documentation of the patient's advanced care plan.
[2017-03-04 06:30] VITALS: BP 146/76
[2017-03-04 11:56] VITALS: BP 153/74
--- NOTE | 2017-03-04 13:34 | Provider's Discharge Care Plan ---
Problem, Goal, Plan Problem List 1. Chest pain, rule out acute myocardial infarction Instructions: - no troponemia, no evidence of ischemia on ekg or telemetry - will refer for stress test
[2017-03-04 15:06] VITALS: BP 138/70
--- NOTE | 2017-03-06 13:02 | ED MED RECONCILIATION SUMMARY ---
Patient: CLAUDIA KING Medication Reconciliation Report [facility] VisitID: [id number] [address] [place] [address] 72y, F Registration Date/Time: 03/03/2017 Weight: 86.1 kg Height/Length: 62 in. BMI: 34.8 ALLERGIES: PCN, Phenergan The patient's Home Medications are listed below: THE FOLLOWING MEDICATIONS NEED TO BE RECONCILED: Gabapentin Oral 100 mg, 3x a day Metoprolol Tartrate Oral (25 mg) 1 tablet Propranolol HCl Oral 120 mg, daily Thyroid Oral Venlafaxine HCl ER Oral (37.5 mg) 1 tablet The source(s) of the original Home Medication information: Not obtained. The following Medications were given to the patient in the Emergency Department: Aspirin [PO] PO 325 mg, administered: 03/03/2017 2:54:00 PM NITROGLYCERIN PASTE [TOPICAL] Topical 1 in., administered: 03/03/2017 2:54:00 PM The following Medications were prescribed to the patient: None.
--- NOTE | 2017-03-06 13:02 | ED MAR SUMMARY ---
..... Medication Administration Record [facility] [address] [place] [address] Patient: CLAUDIA KING Visit ID: [id number] 72y, F Weight: 86.1 kg Height/Length: 62 in BMI: 34.8 ALLERGIES: PCN, Phenergan Given 14:54 03/03/2017 Sheriff Stephon RAdeNAde Medication Administered: ASPIRIN [PO], Dose: 325 mg PO. Medication Ordered: Aspirin PO 325 mg (NOW). Given 14:54 03/03/2017 Sheriff Stephon RAdeNAde Medication Administered: NITROGLYCERIN PASTE [TOPICAL], Dose: 1 in. Topical. Medication Ordered: NitroGLYCERIN Paste Topical 1 in. (NOW).
--- NOTE | 2017-03-06 13:02 | ED MAR SUMMARY ---
..... Medication Administration Record [facility] [address] [place] [address] Patient: CLAUDIA KING Visit ID: [id number] 72y, F Weight: 86.1 kg Height/Length: 62 in BMI: 34.8 ALLERGIES: PCN, Phenergan Given 14:54 03/03/2017 Sheriff Stephon RAdeNAde Medication Administered: ASPIRIN [PO], Dose: 325 mg PO. Medication Ordered: Aspirin PO 325 mg (NOW). Given 14:54 03/03/2017 Sheriff Stephon RAdeNAde Medication Administered: NITROGLYCERIN PASTE [TOPICAL], Dose: 1 in. Topical. Medication Ordered: NitroGLYCERIN Paste Topical 1 in. (NOW).
--- NOTE | 2017-03-06 13:02 | ED DISCHARGE INSTRUCTIONS ---
Patient: CLAUDIA KING General Instructions [facility] VisitID: [id number] [address] [place] [address] 72y, F Registration Date/Time: 03/03/2017 CHEST PAIN, RO ACS. (Electronically signed by Fernandez Beebe MD 03/04/2017 0:21)
--- NOTE | 2017-03-06 13:02 | ED MED RECONCILIATION SUMMARY ---
Patient: CLAUDIA KING Medication Reconciliation Report [facility] VisitID: [id number] [address] [place] [address] 72y, F Registration Date/Time: 03/03/2017 Weight: 86.1 kg Height/Length: 62 in. BMI: 34.8 ALLERGIES: PCN, Phenergan The patient's Home Medications are listed below: THE FOLLOWING MEDICATIONS NEED TO BE RECONCILED: Gabapentin Oral 100 mg, 3x a day Metoprolol Tartrate Oral (25 mg) 1 tablet Propranolol HCl Oral 120 mg, daily Thyroid Oral Venlafaxine HCl ER Oral (37.5 mg) 1 tablet The source(s) of the original Home Medication information: Not obtained. The following Medications were given to the patient in the Emergency Department: Aspirin [PO] PO 325 mg, administered: 03/03/2017 2:54:00 PM NITROGLYCERIN PASTE [TOPICAL] Topical 1 in., administered: 03/03/2017 2:54:00 PM The following Medications were prescribed to the patient: None.
--- NOTE | 2017-03-06 13:02 | ED DISCHARGE INSTRUCTIONS ---
Patient: CLAUDIA KING General Instructions [facility] VisitID: [id number] [address] [place] [address] 72y, F Registration Date/Time: 03/03/2017 CHEST PAIN, RO ACS. (Electronically signed by Fernandez Beebe MD 03/04/2017 0:21)
== END 2017-03-04 16:00 | disposition home or self-care (01) ==
LOC: ED SRH 14:01 → TRANS SRH 18:14 → CC SRH 19:59
PROVIDERS: ADMIT Emergency Medicine Emergency Medical Services
DX: R07.9 Chest pain, unspecified (principal); R11.2 Nausea with vomiting, unspecified; I10 Essential (primary) hypertension; G62.9 Polyneuropathy, unspecified; G47.33 Obstructive sleep apnea (adult) (pediatric); G25.81 Restless legs syndrome; Z87.891 Personal history of nicotine dependence
CPT/HCPCS: 29248; 90074; 90100; 90616; 91320; 91556; 92610; 92690; 92720; 93140; 94060; 95059